=== PATIENT | male | born 1970 | race American Indian/Alaskan Native ===

== ENCOUNTER 2018-01-11 04:47 | Emergency (ER) | payer OTHER ==
[2018-01-11 05:05] VITALS: TEMP 98.3
--- NOTE | 2018-01-11 05:33 | C.PDOC ---
History Of Present Illness 47 year old male presents to the ER with a complaint of chronic right knee pain and swelling. Patient has rods in place in his right leg from prior injury. Denies recent injury, recent trauma, weakness, or numbness. Time Seen by Provider: 01/11/18 05:26 Chief Complaint (Nursing): Lower Extremity Problem/Injury History Per: Patient History/Exam Limitations: no limitations Onset/Duration Of Symptoms: Days Current Symptoms Are (Timing): Still Present Recent travel outside of the [place]: No Past Medical History Reviewed: Historical Data, Nursing Documentation, Vital Signs Vital Signs: Last Vital Signs Temp 98.3 F 01/11/18 05:01 Pulse 80 01/11/18 05:01 Resp 20 01/11/18 05:01 BP 151/90 H 01/11/18 05:01 Pulse Ox 97 01/11/18 06:07 - Medical History PMH: HTN, Hypothyroidism Family History: States: Unknown Family Hx - Social History Hx Tobacco Use: Yes Hx Alcohol Use: Yes Hx Substance Use: Yes - Immunization History Hx Tetanus Toxoid Vaccination: No Hx Influenza Vaccination: No Hx Pneumococcal Vaccination: No Review Of Systems Musculoskeletal: Positive for: Other (Right knee pain/swelling) Neurological: Negative for: Weakness, Numbness Physical Exam - Physical Exam Appears: Non-toxic Skin: Normal Color, Warm, Dry, No Pale, No Rash, No Jaundice, No Ecchymosis Head: Atraumatic, Normacephalic Eye(s): bilateral: Normal Inspection Neck: Normal ROM Extremity: Normal ROM (x4), No Tenderness, No Calf Tenderness, Capillary Refill (<2 seconds), No Deformity, No Swelling, Other (Pain with flexion of right knee) Pulses: Left Dorsalis Pedis: Normal, Right Dorsalis Pedis: Normal Neurological/Psych: Oriented x3, Normal Speech, Normal Motor, Normal Sensation Gait: Steady ED Course And Treatment O2 Sat by Pulse Oximetry: 97 (Room air) Pulse Ox Interpretation: Normal - Other Rad Right knee x-ray X-Ray: Interpreted by Me, Viewed By Me Medical Decision Making Medical Decision Making: Right knee x-ray ordered and reviewed shows ORIF, demineralization and degenerative changes; no acute fracture, dislocation or effusion. Motrin administered. Patient reports improvement of pain, he is ambulatory in the ER with a steady gait, will discharge home with instructions to follow up with PMD. Disposition Counseled Patient/Family Regarding: Studies Performed, Diagnosis, Need For Followup, Rx Given - Disposition Referrals: Osmar Blanco MD [Staff Provider] - Disposition: HOME/ ROUTINE Disposition Time: 06:14 Condition: STABLE Additional Instructions: Your xray was normal, no fracture. Please apply ice to area 15 minutes three times a day. Take Motrin as needed for pain every 6 hours, with food to not upset stomach. Follow up with orthopedic if pain persists over one week. Prescriptions: Ibuprofen [Motrin] 600 mg PO Q8 #30 tab Instructions: Knee Pain (DC) Forms: [employer] (K[place]akh) - POA Present On Arrival: None - Clinical Impression Clinical Impression: Knee pain, right - PA / [employer] / Resident Statement MD/DO has reviewed & agrees with the documentation as recorded. - Scribe Statement The provider has reviewed the documentation as recorded by the Scribe Efraín Mcdowell All medical record entries made by the Scribe were at my direction and personally dictated by me. I have reviewed the chart and agree that the record accurately reflects my personal performance of the history, physical exam, medical decision making, and the department course for this patient. I have also personally directed, reviewed, and agree with the discharge instructions and disposition.
[2018-01-11 06:31] VITALS: BP 145/85; PULSE 79; RESP 18; O2SAT 99
--- NOTE | 2018-01-11 10:46 | RAD ---
Date of service: 01/11/2018 PROCEDURE: Right Knee Radiographs. HISTORY: Knee pain, chronic COMPARISON: 07/20/2014 FINDINGS: BONES: Bone alignment is normal. There is diffuse bone demineralization.There is no acute displaced fracture or bone destruction. There is an intramedullary bryon and 3 metallic screws in the distal femur. No hardware complications. JOINTS: There is moderate tricompartmental degenerative osteoarthrosis with reduced joint spaces, marginal osteophytes and tibial spiking, worse in the media compartment. JOINT EFFUSION: There is a small suprapatellar joint effusion. OTHER FINDINGS: None. IMPRESSION: No acute fracture or dislocation. Moderate tricompartmental degenerative osteoarthrosis, worse in the medial compartment. Small suprapatellar joint effusion.
== END 2018-01-11 06:31 | disposition home or self-care (01) ==
LOC: C.ER 04:47
DX: M25.561 Pain in right knee (principal)